=== PATIENT | male | born 1960 | race Caucasian/White ===

== ENCOUNTER 2017-05-12 08:24 | Inpatient (IN) | payer BC ==
[~2017-05-12] VITALS: Ht 182.9 cm; Wt 132.6 kg
[2017-06-13] VITALS (11 sets, daily range): BP systolic 106–163; BP diastolic 62–91; PULSE 47–69; TEMP 98–100.3
[2017-06-13] MEDS ORDERED: PRINIVIL20 MG PO (06:01)
[2017-06-13] MEDS ORDERED: LIPITOR20 MG PO (06:01)
[2017-06-13] MEDS ORDERED: FOLIC ACID0.4 MG PO (06:02)
[2017-06-13] MEDS ORDERED: IRON18 MG1 (06:02)
[2017-06-13] MEDS ORDERED: NATURAL VITAM1000 MG PO (06:02)
[2017-06-13] MEDS ORDERED: ALEVE 220MG220 MG PO (06:03)
[2017-06-13] MEDS ORDERED: GLUCOSAMINE MSM1 TAB PO (06:03)
[2017-06-13] MEDS ORDERED: EPA FISH OIL1 SGL PO (06:03)
[2017-06-13] MEDS ORDERED: TURMERIC500 MG PO (06:04)
[2017-06-14] VITALS (8 sets, daily range): BP systolic 111–160; BP diastolic 59–80; PULSE 62–79; TEMP 97.4–99.2
[2017-06-14 06:53] LABS: HEMATOCRIT 37.8 % (42.0-52.0); HEMOGLOBIN 12.6 g/dl (13.5-18.0)
[2017-06-15 03:28] VITALS: BP 149/76; PULSE 65; TEMP 98.1
[2017-06-15 06:47] LABS: HEMATOCRIT 38.2 % (42.0-52.0); HEMOGLOBIN 12.6 g/dl (13.5-18.0)
[2017-06-15] MEDS ORDERED: ASPI325T6 PO (06:52)
[2017-06-15] MEDS ORDERED: NORCO 325 MG-7.1 TAB PO (06:53)
[2017-06-15] MEDS ORDERED: ROXICODONE 55 MG/TAB PO (06:54)
[2017-06-15] MEDS ORDERED: TYLENOL 500MG500 MG PO (06:55)
[2017-06-15] MEDS ORDERED: COLACE 100100 MG/CAP PO (06:56)
[2017-06-15 07:47] VITALS: BP 129/69; PULSE 59; TEMP 97.7
[2017-06-15 11:55] VITALS: BP 125/61; PULSE 66; TEMP 98.7
== END 2017-06-15 13:38 | disposition home or self-care (01) | DRG 470 ==
LOC: JCC 06-13 05:16
PROVIDERS: Orthopaedic Surgery
PROC: 0SRC0J9 Replacement of Right Knee Joint with Synthetic Substitute, Cemented, Open Approach (ICD-10-PCS; principal; 2017-06-13 07:30)
DX: M17.11 Unilateral primary osteoarthritis, right knee (principal); Z68.41 Body mass index [BMI] 40.0-44.9, adult; I10 Essential (primary) hypertension; G47.33 Obstructive sleep apnea (adult) (pediatric); E66.9 Obesity, unspecified
CPT/HCPCS: A4314; A9284; C1713; C1776; J0690; J2250; J2270; J2704; J7120

== ENCOUNTER → 2017-06-04 | Outpatient (CLI) | payer BC | LOC: COL.LAB 06-02 16:55 | DX: Z96.651 Presence of right artificial knee joint (principal) ==